=== PATIENT | female | born 1970 | race African-American/Black ===

== ENCOUNTER 2019-04-21 09:35 | Emergency (ER) | payer OTHER ==
[~2019-04-21] VITALS: Ht 172.7 cm; Wt 122.5 kg
[2019-04-21] MEDS ORDERED: HYDROCHLOROTH12.5 M1 PO (10:05)
[2019-04-21] MEDS ORDERED: NORVASC10 MG PO (10:06)
[2019-04-21 10:36] LABS: ABSOLUTE NEUTROPHILS 6.5 thou/uL (1.4-8.2); EOSINOPHILS 0.5 % (0.0-3.0); HEMATOCRIT 37.9 % (37.0-47.0); HEMOGLOBIN 12.2 gm/dL (12.0-15.0); LYMPHOCYTES 35.7 % (24.0-44.0); MCH 26.1 pg (26.0-34.0); MCHC 32.2 g/dL (28.0-37.0); MCV 80.9 fL (80.0-100.0); MONOCYTES 7.9 % (1.0-8.0); PLATELET COUNT 315 thou/uL (150-400); POLYS 54.9 % (36.0-66.0); RBC 4.69 mil/uL (4.20-5.00); RDW 15.5 % (10.5-14.5); WBC 11.8 thou/uL (4.0-11.0)
[2019-04-21 10:42] LABS: URINE BILIRUBIN NEGATIVE (Negative); URINE BLOOD 1+ (Negative); URINE CLARITY CLEAR; URINE COLOR YELLOW; URINE GLUCOSE-RANDOM* NEGATIVE (Negative); URINE KETONES NEGATIVE (Negative); URINE LEUKOCYTES-REFLEX NEGATIVE (Negative); URINE NITRITE-REFLEX NEGATIVE (Negative); URINE PROTEIN (DIPSTICK) NEGATIVE (Negative); URINE SPECIFIC GRAVITY 1.015 (1.005-1.035); URINE UROBILINOGEN 0.2 E.U./dl (0.2-1.0)
[2019-04-21 10:58] LABS: CALCIUM 9.5 mg/dL (8.5-10.1); CREATININE 1.1 mg/dL (0.6-1.0)
[2019-04-21 11:01] LABS: CASTS None Seen /LPF (None Seen); CRYSTALS None Seen /LPF (None Seen); SQUAMOUS 0-3 Few /LPF (0-3); URINE WBC-REFLEX 0-5 Rare /HPF (0-5)
[2019-04-21 11:02] LABS: BACTERIA-REFLEX 1-9 Few /HPF (None Seen); URINE RBC 0-2 Rare /HPF (0-2)
[2019-04-21 11:06] LABS: ALBUMIN 3.3 g/dL (3.4-5.0); TOTAL BILIRUBIN 0.2 mg/dL (<0.1-1.0); TOTAL PROTEIN 8.6 g/dL (6.4-8.2)
[2019-04-21 14:11] VITALS: BP 146/85
== END 2019-04-21 14:11 | disposition home or self-care (01) ==
LOC: ER 09:35
PROVIDERS: Emergency Medicine
DX: R10.31 Right lower quadrant pain (principal); I10 Essential (primary) hypertension; F17.210 Nicotine dependence, cigarettes, uncomplicated; Z90.49 Acquired absence of other specified parts of digestive tract

== ENCOUNTER 2019-04-28 07:23 | Emergency (ER) | payer OTHER ==
[~2019-04-28] VITALS: Ht 172.7 cm; Wt 122.5 kg
[~2019-04-28 07:23] MED LIST: HYDROCHLOROTH12.5 M1 PO; NORVASC10 MG PO
[2019-04-28 07:59] LABS: URINE BILIRUBIN NEGATIVE (Negative); URINE CLARITY CLEAR; URINE COLOR YELLOW; URINE GLUCOSE-RANDOM* NEGATIVE (Negative); URINE KETONES NEGATIVE (Negative); URINE PROTEIN (DIPSTICK) TRACE (Negative); URINE SPECIFIC GRAVITY 1.005 (1.005-1.035)
[2019-04-28 08:00] LABS: URINE BLOOD TRACE (Negative); URINE LEUKOCYTES NEGATIVE (Negative); URINE NITRITE NEGATIVE (Negative); URINE UROBILINOGEN 0.2 E.U./dl (0.2-1.0)
[2019-04-28 08:08] LABS: CASTS None Seen /LPF (None Seen); MUCUS 4-6 Moderate strn/LPF (None Seen); SQUAMOUS 4-10 Moderate /LPF (0-3); URINE WBC 0-5 Rare /HPF (0-5)
[2019-04-28 08:09] LABS: BACTERIA None Seen /HPF (None Seen); CRYSTALS None Seen /LPF (None Seen); URINE RBC 3-10 Few /HPF (0-2)
[2019-04-28 08:11] LABS: ABSOLUTE NEUTROPHILS 7.9 thou/uL (1.4-8.2); BASOPHILS 1.1 % (0.0-2.0); EOSINOPHILS 0.5 % (0.0-3.0); HEMATOCRIT 38.1 % (37.0-47.0); HEMOGLOBIN 12.4 gm/dL (12.0-15.0); LYMPHOCYTES 29.3 % (24.0-44.0); MCH 25.9 pg (26.0-34.0); MCHC 32.5 g/dL (28.0-37.0); MCV 79.8 fL (80.0-100.0); MONOCYTES 7.4 % (1.0-8.0); PLATELET COUNT 318 thou/uL (150-400); POLYS 61.7 % (36.0-66.0); RBC 4.78 mil/uL (4.20-5.00); RDW 14.9 % (10.5-14.5); WBC 12.8 thou/uL (4.0-11.0)
[2019-04-28 08:18] LABS: CALCIUM 9.2 mg/dL (8.5-10.1); CREATININE 1.2 mg/dL (0.6-1.0); POTASSIUM 3.9 mmol/L (3.5-5.1)
[2019-04-28 08:25] LABS: ALBUMIN 3.2 g/dL (3.4-5.0); TOTAL BILIRUBIN 0.5 mg/dL (<0.1-1.0); TOTAL PROTEIN 8.4 g/dL (6.4-8.2)
[2019-04-28] MEDS ORDERED: MIRALAX17 GM PO (11:11)
[2019-04-28 12:13] VITALS: BP 158/71
== END 2019-04-28 12:25 | disposition home or self-care (01) ==
LOC: ER 07:23
PROVIDERS: Student in an Organized Health Care Education/Training Program
DX: K59.00 Constipation, unspecified (principal); I10 Essential (primary) hypertension; F17.210 Nicotine dependence, cigarettes, uncomplicated; Z90.49 Acquired absence of other specified parts of digestive tract

== ENCOUNTER → 2019-10-12 | Outpatient (CLI) | payer OTHER, SELFPAY ==
[~2019-10-12] MED LIST changes: +MIRALAX17 GM PO
== END ==
LOC: RAD 11:10
DX: M19.041 Primary osteoarthritis, right hand (principal); M19.042 Primary osteoarthritis, left hand; M19.072 Primary osteoarthritis, left ankle and foot; M19.071 Primary osteoarthritis, right ankle and foot; M25.572 Pain in left ankle and joints of left foot; M25.571 Pain in right ankle and joints of right foot; M77.32 Calcaneal spur, left foot; M77.31 Calcaneal spur, right foot

== ENCOUNTER → 2019-11-01 | Outpatient (CLI) | payer OTHER | LOC: BC 14:09 | DX: Z12.31 Encounter for screening mammogram for malignant neoplasm of breast (principal) ==

== ENCOUNTER → 2019-11-09 | Outpatient (CLI) | payer OTHER | LOC: ULTRA 11:28 | DX: N60.01 Solitary cyst of right breast (principal) ==

== ENCOUNTER → 2020-03-17 | Outpatient (CLI) | payer OTHER | LOC: RAD 14:12 | DX: M17.0 Bilateral primary osteoarthritis of knee (principal); M19.072 Primary osteoarthritis, left ankle and foot; M19.071 Primary osteoarthritis, right ankle and foot; M19.012 Primary osteoarthritis, left shoulder; M25.461 Effusion, right knee; M77.32 Calcaneal spur, left foot; M77.31 Calcaneal spur, right foot ==

== ENCOUNTER → 2020-04-13 | Outpatient (CLI) | payer OTHER ==
[2020-04-13 12:11] LABS: ABSOLUTE NEUTROPHILS 5.8 thou/uL (1.4-8.2); BASOPHILS 1.1 % (0.0-2.0); EOSINOPHILS 1.2 % (0.0-3.0); HEMATOCRIT 38.3 % (37.0-47.0); HEMOGLOBIN 12.4 gm/dL (12.0-15.0); MCHC 32.4 g/dL (28.0-37.0); MCV 83.2 fL (80.0-100.0); MONOCYTES 7.8 % (1.0-8.0); PLATELET COUNT 254 thou/uL (150-400); POLYS 50.9 % (36.0-66.0); WBC 11.4 thou/uL (4.0-11.0)
[2020-04-13 12:32] LABS: ALBUMIN 3.3 g/dL (3.4-5.0); CALCIUM 8.7 mg/dL (8.5-10.1); CREATININE 1.1 mg/dL (0.6-1.0); POTASSIUM 3.9 mmol/L (3.5-5.1); TOTAL BILIRUBIN 0.4 mg/dL (0.2-1.0); TOTAL PROTEIN 7.7 g/dL (6.4-8.2)
[2020-04-14 04:06] LABS: GLYCOHEMOGLOBIN (HGB A1C) 5.4 % (4.8-5.6)
== END ==
LOC: LAB 11:38
PROVIDERS: ATTEND Family Medicine
DX: Z00.00 Encounter for general adult medical examination without abnormal findings (principal); N30.00 Acute cystitis without hematuria

== ENCOUNTER → 2020-05-26 | Outpatient (CLI) | payer OTHER | LOC: CAT 11:53 | PROVIDERS: ATTEND Nurse Practitioner | DX: K57.30 Diverticulosis of large intestine without perforation or abscess without bleeding (principal); K76.89 Other specified diseases of liver ==

== ENCOUNTER → 2020-06-12 | Outpatient (CLI) | payer OTHER | LOC: MRI 08:57 | PROVIDERS: ATTEND Orthopaedic Surgery | DX: M17.0 Bilateral primary osteoarthritis of knee (principal); M25.461 Effusion, right knee ==

== ENCOUNTER → 2020-06-30 | Outpatient (CLI) | payer OTHER ==
[~2020-06-30] MED LIST changes: +ALEVE220 M1 PO; +HYDROCHLOROTHIA25 M2 PO; +HYDROXYCHLOROQ200 M1 PO; +MELOXICAM15 MG PO; +OLMESARTAN MEDO20 MG PO; +OXYCODONE-ACET1 EACH PO; +TRAMADOL 50 MG50 MG PO
== END ==
LOC: LAB 12:15
PROVIDERS: ATTEND Orthopaedic Surgery
DX: Z01.812 Encounter for preprocedural laboratory examination (principal); Z20.828 Contact with and (suspected) exposure to other viral communicable diseases

== ENCOUNTER 2020-07-06 11:05 | Inpatient (IN) | payer OTHER ==
[2020-06-30 10:01] LABS: HEMATOCRIT 39.6 % (37.0-47.0); HEMOGLOBIN 12.7 gm/dL (12.0-15.0); MCH 26.7 pg (26.0-34.0); MCHC 32.1 g/dL (28.0-37.0); MCV 83.2 fL (80.0-100.0); RBC 4.76 mil/uL (4.20-5.00); RDW 15.4 % (10.5-14.5); WBC 10.9 thou/uL (4.0-11.0)
[2020-06-30 10:03] LABS: URINE BILIRUBIN NEGATIVE (Negative); URINE BLOOD 2+ (Negative); URINE CLARITY CLEAR; URINE COLOR YELLOW; URINE GLUCOSE-RANDOM* NEGATIVE (Negative); URINE KETONES NEGATIVE (Negative); URINE LEUKOCYTES-REFLEX NEGATIVE (Negative); URINE NITRITE-REFLEX NEGATIVE (Negative); URINE PROTEIN (DIPSTICK) NEGATIVE (Negative); URINE UROBILINOGEN 0.2 E.U./dl (0.2-1.0)
[2020-06-30 10:14] LABS: ALBUMIN 3.7 g/dL (3.4-5.0); CALCIUM 9.1 mg/dL (8.5-10.1); CREATININE 0.8 mg/dL (0.6-1.0); POTASSIUM 3.7 mmol/L (3.5-5.1)
[2020-06-30 10:29] LABS: SQUAMOUS >10 Many /LPF (0-3)
[2020-06-30 10:31] LABS: CASTS None Seen /LPF (None Seen); CRYSTALS None Seen /LPF (None Seen); URINE RBC 0-2 Rare /HPF (0-2)
[2020-06-30 10:32] LABS: BACTERIA-REFLEX 1-9 Few /HPF (None Seen); URINE WBC-REFLEX 0-5 Rare /HPF (0-5)
--- NOTE | 2020-06-30 11:47 | EKG ---
[facility] [place] [address] ELECTROCARDIOGRAM REPORT Name: LACIE MINA Room #: PRE [facility] M.R.#: [id number] Admission: Attend Phys: Sonny Larry MD Discharge: Date of : 68 Report #: [id number] THIS REPORT FOR: cc: Nando Nelson James A. DO Santiago, Patrick MD LOCATED WITHIN [facility] ~ THIS REPORT FOR: //name// [facility] Test Date: 2020-06-30 Test Time: 09:52:11 Pat Name: LACIE MINA Department: Room: Gender: F Cigar Head Holer: TIFFANI : 1970 Requested By: Sonny Larry Order Number: [id number] MD: Nate Fowler Measurements Intervals [place] Rate: 71 P: 58 PA: 193 QRS: 15 QRSD: 95 T: 15 QT: 403 QTc: 438 Interpretive Statements Sinus rhythm No previous ECG available for comparison Electronically Signed On 06-30-2020 11:47:46 CDT by Nate Fowler [email or web address] <ELECTRONICALLY SIGNED> By: Nate Fowler MD, LOCATED WITHIN [facility] 06/30/20 1147 D: 09/951 1 Nate Fowler MD, FAC /EPI
[~2020-07-06] VITALS: Ht 172.7 cm; Wt 119.3 kg
--- NOTE | ~2020-07-06 | O ---
[facility] [place] [address] OPERATIVE REPORT Name: LACIE MINA Room #: 150-1 [facility] M.R.#: [id number] Admission: 07/06/20 Attend Phys: Sonny Larry MD Discharge: Date of : 68 Report #: [id number] THIS REPORT FOR: cc: Nando Nelson,Sonny Lua MD ~ CC: Nando Larry DATE OF SERVICE: 07/06/2020 PREOPERATIVE DIAGNOSIS: Right knee osteoarthritis. POSTOPERATIVE DIAGNOSIS: Right knee osteoarthritis. PROCEDURE: Right total knee arthroplasty using Navio robotic assistant associate full professor. SURGEON: Sonny Larry MD. SUPERINTENDENT STORAGE AREA: July Esparza PA-C. INDICATIONS FOR SUPERINTENDENT STORAGE AREA: Throughout the case, extensive retraction and manipulation of the knee was required. This was afforded to me by my assistant associate full professor. ANESTHESIA: LMA with an adductor canal block. IMPLANTS: [employer] size 6 Journey II BCS Oxinium femur, size 4 tibia, size 11 constrained polyethylene and size 32 patella. TOURNIQUET TIME: 55 minutes. ESTIMATED BLOOD LOSS: 25 mL. COMPLICATIONS: None. SPECIMENS: None. CONDITION UPON LEAVING THE OPERATING ROOM: Stable. INDICATIONS FOR PROCEDURE: The patient is a 50-year-old female with right knee osteoarthritis. She had failed conservative measures for this and after discussion with her, she elected for right total knee arthroplasty. DESCRIPTION OF PROCEDURE: Risks, benefits, alternatives, complications were discussed in detail with the patient including but not limited to risk of anesthesia, risk of damage to nerves, arteries, blood vessels, risk for [facility] [address] [place] [address] OPERATIVE REPORT Name: LACIE MINA Room #: 150-1 [facility]..#: [id number] Admission: 07/06/20 Attend Phys: Snony Larry MD Discharge: Date of : 68 Report #: [id number] infection, bleeding, risk for continued knee pain, need for reoperation. Informed consent was obtained from the patient. Right knee was appropriately marked in the preoperative holding area. IV Ancef was given for preoperative antibiotics. Adductor canal block was placed by Anesthesia. She was brought to the operating room and placed in supine position on operating room table. LMA anesthesia was induced without complication. Tourniquet was placed on the right thigh and right lower extremity was prepped and draped in normal sterile fashion. Timeout was performed properly identifying the patient and procedure as well as the instrumentation and implants. All in the operating room were in agreement. Right lower extremity was exsanguinated, tourniquet was inflated. Tourniquet time was 55 minutes. Standard midline approach to the knee was made with 10 blade through the skin. Dissection was taken down sharply to the fascia and deep flaps were developed medially and laterally. Fresh 10 blade was used to make a medial parapatellar arthrotomy and the knee was inspected. There was severe tricompartmental osteoarthritis. ACL and PCL were removed sharply. Reference pins were placed in the femur and the tibia and the knee was then digitally mapped using the [employer] robotic system. Intraoperative plan was made and we sized the size 6 femur with a size 4 tibia and a size 10 spacer. After acceptance of the intraoperative plan, the distal femoral cut was made with a Navio bur. Distal femoral cutting block was pinned in place and the chamfer cuts were made. Attention was turned to the tibia. Remainder of the menisci removed with Bovie cautery. Tibial resection guide was pinned in place and tibial resection was made. After this, flexion and extension gaps were checked and found to have good balance in flexion and extension both medially and laterally. Tibia was sized, found to be a size 4. Size 4 tibial trial was placed, pinned and punched. A size 6 femoral trial was placed and the box cut was made. This was then trialed with a size 10 and then a size 11 polyethylene. Size 11 polyethylene demonstrated good balance laterally throughout range of motion. She did have 3-4 mm opening medially and it was felt we could make up for this with a constrained implant. The 9 mm was then resected from the posterior surface of the patella and a size 32 patellar trial button was placed. Knee was taken through range of motion, found to be stable, found to have good patellar tracking. Trial components were removed. Bony ends were thoroughly irrigated with normal saline. Final size 4 tibia, size 6 Journey II BCS Oxinium femur and a size 32 patella were cemented into place using standard cementation techniques. While the cement cured, a periarticular injection consisting of morphine, ropivacaine, epinephrine and Toradol was placed around the knee joint capsule. After the cement cured, the tourniquet was deflated. Hemostasis was obtained with Bovie cautery. Final size 11 constrained polyethylene was placed. A gram of vancomycin was placed deep in the joint. Fascia was closed with 0 Vicryl, skin was closed with 2-0 Vicryl, skin staple and a MARIALUISA dressing was [address] [address] OPERATIVE REPORT Name: LACIE MINA Room #: 150-1 [facility] Joni#: [id number] Admission: 07/06/20 Attend Phys: Sonny Larry MD Discharge: Date of : 68 Report #: [id number]. The patient tolerated this procedure well and went to recovery room under care of Anesthesia postoperatively. By: [id number] Sonny Larry MD /nt
[2020-07-06 11:46] VITALS: BP 145/87
--- NOTE | 2020-07-06 18:21 | NUR ---
PT ARRIVED ON UNIT SLEEPING AND PT REPORTS HE PAIN IS UNDER CONTROL AT THIS TIME AND WENT BACK TO SLEEP. PT HAS CHRISTOPHER JONES, SCD, AND MARIALUISA DRESSING. VSS, CALL LIGHT IN REACH, FALL PRECAUTIONS IN PLACE. WILL CONTINUE TO MONITOR.
[2020-07-06 18:34] VITALS: BP 127/81
[2020-07-06 19:51] VITALS: BP 129/64
[2020-07-07 00:35] VITALS: BP 136/59
--- NOTE | 2020-07-07 02:57 | NUR ---
ASSESSED AT START OF SHIFT PT A&OX4. IV INTACT WITH IVF. PT CRYING C/O PAIN MANAGED WITH IV AND PO PAIN MED. NIGHT SNACKS AND FOOD TRAY PROVIDED PT DENIES N/V, JASON MEAL WELL. BEDPAN PROVIDED FOR URINE OUTPUT. MARIALUISA DRESSING, ICE BOX, SCD'S AND TEDHOSE INTACT. FALL PREC IN PLACE AND CALL LIGHT IN REACH WILL CONT WITH POC TILL EOS.
[2020-07-07 03:42] VITALS: BP 120/91
[2020-07-07 05:58] LABS: HEMATOCRIT 32.8 % (37.0-47.0); HEMOGLOBIN 10.5 gm/dL (12.0-15.0); MCH 26.5 pg (26.0-34.0); MCHC 32.2 g/dL (28.0-37.0); MCV 82.3 fL (80.0-100.0); RBC 3.98 mil/uL (4.20-5.00); RDW 14.7 % (10.5-14.5)
[2020-07-07 11:49] VITALS: BP 124/66
--- NOTE | 2020-07-07 12:49 | NUR ---
INITIAL ASSESSMENT: DORA reviewed chart and spoke with nursing. Pt had right TKA yesterday. Pt may d/c home later today or tomorrow. SW met with pt at bedside. Introduced role of SW. Pt is alert/orientated x 4. Pt reports she lives at home. 2 steps to enter the home. No steps inside. Prior to admission, pt was independent with ADLS. Pt works at [employer]. Pt does not have any DME and will need a walker at time of discharge. SW discussed options for DME companies and also discharge needs: outpt v. HH therapy. Pt states she would prefer to use HH at first. SW discussed need to find in-network providers. SW confirmed pt's home address and phone number. Pt's PCP is Dr. Nando Nelson. SW faxed HH referral to [facility]. Notified liaison of new referral. DORA spoke with [facility] Patient to provide walker for pt. Script obtained. Info and script faxed to [facility]. Contact info for HH and P placed in pt's discharge summary. Finalized discharge orders will need to be faxed to when available. DORA is following to assist as needed with discharge planning. KIMBERLY --
[2020-07-07 12:54] VITALS: BP 124/66
--- NOTE | 2020-07-07 18:47 | NUR ---
Assumed care of pt. at 0700. Pt. calm and cooperative, but suffering severe pain. Physician notified, orders given, increased dosages given and this helped decrease the pain level. Patient complained of cramping in the affected RLE. Fall precautions in place.
[2020-07-07 21:20] VITALS: BP 151/89
--- NOTE | 2020-07-08 01:57 | NUR ---
PATIENT ALERT AND ORIENTED X4. NEEDING PAIN MEDICATION ON ROUNDS WITH AM NURSE. THIS NURSE GAVE DILAUDID PRN AT 1934. PATIENT ROLLING IN BED FROM SIDE TO SIDE WITH GRIMACE AND GROANING. STATED TO THIS NURSE THAT AM NURSE HAD HER PAIN UNDER CONTROL AND WHEN I CAME (THIS NURSE) HER PAIN IS UP AND SHE WANTS ANOTHER NURSE. ALSO GAVE HER SCHEDULED MORPHINE CR. PATIENT CONTINUED TO GET NO RELIEF AND BEGAN C/O OTHER THINGS IN HER ROOM. STATED HER PHONE WAS NOT WORKING, HOWEVER, IT HAD A DIAL TONE. PULLED CALL LIGHT OUT OF THE WALL. AND QUESTIONED THIS NURSE TO WHY HER IVF WAS DISCONTINUED - PER ORDER. AGAIN, PATIENT STATED THAT UNTIL I CAME (THIS NURSE) EVERYTHING WAS UNDER CONTROL. I STATED THAT IT WAS NOT TOO MUCH UNDER CONTROL SHE WAS IN PAIN AND ROLLING AROUND IN THE BED WHEN I GOT HERE. THIS NURSE NOTIFIED HOME CARE COMPANION WHO SPOKE WITH PATIENT. PATIENT ALSO GIVEN PERCOCET TWO TABS, DILAUDID AGAIN AND AMBIEN 5MG. SHE HAS BEEN UP TO THE BATHROOM X3 AT TIME OF NOTE. PAIN LEVEL HAS GONE FROM 10 T0 8. THIS NURSE CHECKED ON PATIENT AT 0150 AND SHE WAS LAYING IN THE BED WITH HER EYES CLOSED. WILL MONITOR.
[2020-07-08 04:55] VITALS: BP 124/39
[2020-07-08 05:20] LABS: HEMATOCRIT 31.3 % (37.0-47.0); HEMOGLOBIN 9.9 gm/dL (12.0-15.0); MCH 26.2 pg (26.0-34.0); MCHC 31.7 g/dL (28.0-37.0); MCV 82.5 fL (80.0-100.0); RBC 3.79 mil/uL (4.20-5.00); RDW 14.6 % (10.5-14.5); WBC 14.5 thou/uL (4.0-11.0)
[2020-07-08 08:13] VITALS: BP 130/70
[2020-07-08 11:11] VITALS: BP 124/66
[2020-07-08 11:46] VITALS: BP 124/66
--- NOTE | 2020-07-08 11:56 | NUR ---
PT DISCHARGING TODAY TO HOME WITH [facility] FAXED DC ORDERS/SUMMARY RECEIVED CONFIRMATION AND LEFT MSG WITH ANS. SERVICE.
== END 2020-07-08 14:31 | disposition home health service (06) | DRG 470 ==
LOC: OR 11:05 → TBA 11:12 → OR 11:51 → 4S 17:46 → OR 07-07 16:10 → 4S 07-07 16:10
PROVIDERS: ADMIT Orthopaedic Surgery; ATTEND Orthopaedic Surgery
PROC: 8E0Y0CZ Robotic Assisted Procedure of Lower Extremity, Open Approach (ICD-10-PCS; principal; 2020-07-07)
PROC: 0SRC069 Replacement of Right Knee Joint with Oxidized Zirconium on Polyethylene Synthetic Substitute, Cemented, Open Approach (ICD-10-PCS; principal; 2020-07-07)
PROC: 3E0T3BZ Introduction of Anesthetic Agent into Peripheral Nerves and Plexi, Percutaneous Approach (ICD-10-PCS; 2020-07-07)
DX: M17.11 Unilateral primary osteoarthritis, right knee (principal); Z87.891 Personal history of nicotine dependence
CPT/HCPCS: 10102; 50010; 50101; 50415; 50954; 51130; 51225; 51320; 51412; 53000; 53078; 56527; 56528; 57095; 57103; 57110; 57127; 57181; 62110; 62900; 64039; 70005

== ENCOUNTER → 2020-08-21 | Outpatient (CLI) | payer OTHER ==
[~2020-08-21] MED LIST changes: +HYDROCODON-ACE1 EAC7 PO; +PERCOCET 5-3251 EACH PO
== END ==
LOC: LAB 14:18
PROVIDERS: ATTEND Orthopaedic Surgery
DX: Z01.812 Encounter for preprocedural laboratory examination (principal); Z20.828 Contact with and (suspected) exposure to other viral communicable diseases

== ENCOUNTER 2020-08-24 09:50 | Day surgery (SDC) | payer OTHER ==
[~2020-08-24] VITALS: Ht 165.1 cm; Wt 115.7 kg
--- NOTE | ~2020-08-24 | O ---
[facility] [place] [address] OPERATIVE REPORT Name: LACIE MINA Room #: 150-11 [facility] M.R.#: [id number] Admission: 08/24/20 Attend Phys: Sonny Larry MD Discharge: Date of : 68 Report #: [id number] THIS REPORT FOR: cc: Nando Nelson,Sonny Lua MD ~ CC: Nando Larry DATE OF SERVICE: 08/24/2020 PREOPERATIVE DIAGNOSIS: Right knee arthrofibrosis, status post total knee arthroplasty. POSTOPERATIVE DIAGNOSIS: Right knee arthrofibrosis, status post total knee arthroplasty. PROCEDURE: Right knee manipulation under anesthesia. SURGEON: Sonny Larry MD. STRETCH MACHINE OPERATOR: None. ANESTHESIA: General with adductor canal block. COMPLICATIONS: None. CONDITION UPON LEAVING THE OPERATING ROOM: Stable. INDICATIONS FOR PROCEDURE: The patient is a 50-year-old female who is several weeks out from a right total knee arthroplasty. She has gone on to develop arthrofibrosis and has plateaued with physical therapy. After discussion with her, she elected for manipulation under anesthesia. DESCRIPTION OF PROCEDURE: Risks, benefits, alternatives, complications were discussed in detail with the patient including but not limited to risk of anesthesia, risk of damage to nerves, arteries, blood vessels, risk for continued stiffness of the knee and fracture. Informed consent was obtained from the patient. Right knee was appropriately marked in the preoperative holding area. Adductor canal block was placed by Anesthesia. She was brought to the operating room and placed in a supine position on operating room table. LMA anesthesia was induced without complication. Timeout was performed properly identifying the patient and procedure as well as all in the operating room were in agreement. The right lower extremity was examined and her passive range of motion prior to manipulation was 30-80 degrees. Gentle manipulation was then performed both in extension and flexion with palpable breakage of scar tissue [facility] [address] [place] [address] OPERATIVE REPORT Name: LACIE MINA Room #: 150-[address] [place] [address].#: [id number] Admission: 08/24/20 Attend Phys: Sonny Larry MD Discharge: Date of : 68 Report #: [id number] and her final range of motion was 10 degrees to 120 degrees. Fluoroscopic imaging was brought in to verify that no fracture had occurred as was the case. She was then awoken from anesthesia and went to the recovery room under care of Anesthesia postoperatively. By: [id number] Sonny Larry MD /nt
[~2020-08-24 09:50] MED LIST changes: -PERCOCET 5-3251 EACH PO
[2020-08-24 10:34] VITALS: BP 160/103
[2020-08-24 11:02] LABS: CALCIUM 9.1 mg/dL (8.5-10.1); POTASSIUM 4.2 mmol/L (3.5-5.1)
[2020-08-24] MEDS ORDERED: PERCOCET 5-3251 EACH PO (11:26)
[2020-08-24 12:04] VITALS: BP 160/103
== END 2020-08-24 12:30 | disposition home or self-care (01) ==
LOC: OR 09:50 → TBA 09:56 → OR 12:30
PROVIDERS: ATTEND Orthopaedic Surgery
DX: M24.661 Ankylosis, right knee (principal); I10 Essential (primary) hypertension; Z96.651 Presence of right artificial knee joint; Z98.890 Other specified postprocedural states; Z79.899 Other long term (current) drug therapy; Z87.891 Personal history of nicotine dependence; Z90.49 Acquired absence of other specified parts of digestive tract; Z87.19 Personal history of other diseases of the digestive system
CPT/HCPCS: 50010; 50101; 62110; 62900; 64039; 64043; 70005

== ENCOUNTER → 2021-01-05 | Outpatient (CLI) | payer OTHER ==
[~2021-01-05] MED LIST changes: +PERCOCET 5-3251 EACH PO
== END ==
LOC: ULTRA 09:19
PROVIDERS: ATTEND Family Medicine
DX: M25.551 Pain in right hip (principal)

== ENCOUNTER → 2021-03-02 | Outpatient (CLI) | payer OTHER | LOC: SJCVCIMAG 10:32 | PROVIDERS: ATTEND Internal Medicine | DX: I51.7 Cardiomegaly (principal); R09.89 Other specified symptoms and signs involving the circulatory and respiratory systems ==

== ENCOUNTER → 2021-03-29 | Outpatient (CLI) | payer OTHER ==
[2021-03-29 09:44] LABS: ABSOLUTE NEUTROPHILS 5.1 thou/uL (1.4-8.2); BASOPHILS 0.5 % (0.0-2.0); EOSINOPHILS 0.7 % (0.0-3.0); HEMATOCRIT 36.8 % (37.0-47.0); HEMOGLOBIN 11.8 gm/dL (12.0-15.0); LYMPHOCYTES 34.6 % (24.0-44.0); MCH 26.4 pg (26.0-34.0); MCHC 32.1 g/dL (28.0-37.0); MCV 82.4 fL (80.0-100.0); PLATELET COUNT 269 thou/uL (150-400); POLYS 55.2 % (36.0-66.0); RBC 4.46 mil/uL (4.20-5.00); RDW 15.3 % (10.5-14.5); WBC 9.3 thou/uL (4.0-11.0)
[2021-03-29 09:46] LABS: URINE BILIRUBIN NEGATIVE (Negative); URINE BLOOD 2+ (Negative); URINE CLARITY CLEAR; URINE COLOR YELLOW; URINE GLUCOSE-RANDOM* NEGATIVE (Negative); URINE KETONES NEGATIVE (Negative); URINE LEUKOCYTES-REFLEX NEGATIVE (Negative); URINE NITRITE-REFLEX NEGATIVE (Negative); URINE PROTEIN (DIPSTICK) TRACE (Negative); URINE SPECIFIC GRAVITY >= 1.030 (1.005-1.035); URINE UROBILINOGEN 0.2 E.U./dl (0.2-1.0)
[2021-03-29 10:01] LABS: ALBUMIN 3.2 g/dL (3.4-5.0); ANION GAP 5 mmol/L (7-16); CALCIUM 8.9 mg/dL (8.5-10.1); CHLORIDE 106 mmol/L (98-107); CHOLESTEROL 158 mg/dL (<200); CO2 31 mmol/L (21-32); GLUCOSE 97 mg/dL (74-106); HDL CHOLESTEROL 42 mg/dL (>40); LDL CHOLESTEROL 103 mg/dL (<100); SGOT 16 U/L (15-37); SGPT 17 U/L (30-65); SODIUM 142 mmol/L (136-145); TC:HDL 3.8 Ratio (Not establshd); TOTAL BILIRUBIN 0.4 mg/dL (0.2-1.0); TOTAL PROTEIN 7.7 g/dL (6.4-8.2); TRIGLYCERIDE 66 mg/dL (<150); VLDL 13 mg/dL (<40)
[2021-03-29 10:06] LABS: SQUAMOUS 0-3 Few /LPF (0-3)
[2021-03-29 10:07] LABS: AMORPHOUS URATES Few /LPF (None Seen); BACTERIA-REFLEX 1-9 Few /HPF (None Seen); BUN 9 mg/dL (7-18); CASTS None Seen /LPF (None Seen); MUCUS 0-3 Light strn/LPF (None Seen); URINE RBC 3-10 Few /HPF (NONE SEEN); URINE WBC-REFLEX 0-5 Rare /HPF (0-5)
[2021-03-30 00:06] LABS: GLYCOHEMOGLOBIN (HGB A1C) 5.6 % (4.8-5.6)
== END ==
LOC: BC 09:11
PROVIDERS: ATTEND Family Medicine
DX: Z01.419 Encounter for gynecological examination (general) (routine) without abnormal findings (principal); Z12.31 Encounter for screening mammogram for malignant neoplasm of breast

== ENCOUNTER → 2021-04-05 | Outpatient (CLI) | payer OTHER | LOC: ULTRA 10:03 | PROVIDERS: ATTEND Family Medicine | DX: N63.20 Unspecified lump in the left breast, unspecified quadrant (principal) ==

== ENCOUNTER → 2021-04-23 | Outpatient (CLI) | payer OTHER | LOC: LAB 12:10 | PROVIDERS: ATTEND Family Medicine | DX: M25.562 Pain in left knee (principal) ==

== ENCOUNTER → 2021-10-04 | Outpatient (CLI) | payer OTHER ==
[~2021-10-04] MED LIST changes: +TESSALON PERLE100 MG PO
== END ==
LOC: RAD 10:54
PROVIDERS: ATTEND Family Medicine
DX: M25.561 Pain in right knee (principal)

== ENCOUNTER → 2021-10-15 | Outpatient (CLI) | payer OTHER | LOC: CAT 11:06 | PROVIDERS: ATTEND Family Medicine | DX: K57.32 Diverticulitis of large intestine without perforation or abscess without bleeding (principal); R10.31 Right lower quadrant pain; M51.37 Other intervertebral disc degeneration, lumbosacral region ==

== ENCOUNTER → 2021-10-24 | Outpatient (CLI) | payer OTHER | LOC: LAB 09:42 | PROVIDERS: ATTEND Orthopaedic Surgery | DX: Z96.651 Presence of right artificial knee joint (principal) ==